=== PATIENT | male | born 1940 | race Caucasian/White ===

== ENCOUNTER 2019-06-04 13:46 | Emergency (ER) | payer MEDICARE ==
[~2019-06-04] VITALS: Ht 172.7 cm; Wt 81.7 kg
[2019-06-04] MEDS ORDERED: PRINIVIL10 MG PO (14:05)
[2019-06-04] MEDS ORDERED: ELIQUIS5 MG PO (14:05)
[2019-06-04] MEDS ORDERED: TOPROL XL25 MG PO (14:05)
[2019-06-04] MEDS ORDERED: LIPITOR10 MG PO (14:06)
== END 2019-06-04 17:00 | disposition home or self-care (01) ==
LOC: ED 13:46
DX: R53.1 Weakness (principal); J18.9 Pneumonia, unspecified organism; J32.9 Chronic sinusitis, unspecified; I10 Essential (primary) hypertension; I48.91 Unspecified atrial fibrillation; Z95.0 Presence of cardiac pacemaker; Z79.899 Other long term (current) drug therapy
CPT/HCPCS: 71046; 80053; 83880; 84484; 85025; 99284-25